=== PATIENT | male | born 1955 | race Caucasian/White ===

== ENCOUNTER 2016-06-06 07:05 | Emergency (ER) | payer BC, MEDICARE ==
[2016-06-06 11:51] LABS: HEMOGLOBIN 15.6 gm/dl (14.0-17.5); RED BLOOD COUNT 5.26 M/UL (4.20-5.50); WHITE BLOOD COUNT 17.1 K/UL (4.5-11.0)
[2016-06-06 12:06] LABS: BUN/CREATININE RATIO 23 (0-10)
== END 2016-06-06 13:50 | disposition home or self-care (01) ==
LOC: ER1 07:05
PROVIDERS: Physician Assistant Medical
DX: M79.1 Myalgia (principal); E11.65 Type 2 diabetes mellitus with hyperglycemia; D72.829 Elevated white blood cell count, unspecified; I10 Essential (primary) hypertension; F17.210 Nicotine dependence, cigarettes, uncomplicated; Z90.49 Acquired absence of other specified parts of digestive tract; Z88.2 Allergy status to sulfonamides; Z79.899 Other long term (current) drug therapy
CPT/HCPCS: 36415; 71020; 80053; 81001; 82009; 85025; 99283

== ENCOUNTER → 2016-08-07 | Outpatient (CLI) | payer BC, MEDICARE | LOC: CT 14:58 | DX: J32.8 Other chronic sinusitis (principal); J32.1 Chronic frontal sinusitis | CPT/HCPCS: 70486 ==

== ENCOUNTER → 2016-08-08 | Outpatient (CLI) | payer BC, MEDICARE | LOC: US 10:07 | DX: M20.40 Other hammer toe(s) (acquired), unspecified foot (principal); E11.9 Type 2 diabetes mellitus without complications; I10 Essential (primary) hypertension; M51.9 Unspecified thoracic, thoracolumbar and lumbosacral intervertebral disc disorder; E55.9 Vitamin D deficiency, unspecified; I77.89 Other specified disorders of arteries and arterioles | CPT/HCPCS: 93922; 93925 ==

== ENCOUNTER 2020-03-07 14:16 | Emergency (ER) | payer MEDICARE ==
[2020-03-07] MEDS ORDERED: VENTOLIN HFA 66.7 GM INH (17:04)
== END 2020-03-07 18:19 | disposition home or self-care (01) ==
LOC: ER1 14:16
DX: J06.9 Acute upper respiratory infection, unspecified (principal); I10 Essential (primary) hypertension; F17.200 Nicotine dependence, unspecified, uncomplicated; Z88.2 Allergy status to sulfonamides; Z20.822 Contact with and (suspected) exposure to COVID-19
CPT/HCPCS: 71046; 81001; 86403; 87081; 87086; 87880; 96372; 99283; J1100; U0002

== ENCOUNTER → 2020-05-05 | Outpatient (CLI) | payer MEDICARE, OTHER ==
[~2020-05-05] MED LIST: COZAAR 25MG TAB25 MG PO; GABAPENTIN300 MG PO; HYDROCODON-ACE1 EAC6 PO; LOPRESSOR 25 MG25 MG PO; OMEPRAZOLE40 MG PO; TIZANIDINE HCL4 MG PO; VENTOLIN HFA 66.7 GM INH; VITAMIN D3125 MCG PO
== END ==
LOC: CT 13:40
DX: K22.2 Esophageal obstruction (principal); G47.62 Sleep related leg cramps; I73.9 Peripheral vascular disease, unspecified; E11.40 Type 2 diabetes mellitus with diabetic neuropathy, unspecified; R13.10 Dysphagia, unspecified; R22.1 Localized swelling, mass and lump, neck; K11.8 Other diseases of salivary glands
CPT/HCPCS: 36415; 70492; 82565; Q9963

== ENCOUNTER 2020-07-27 20:54 | Observation (INO) | payer MEDICARE, OTHER ==
[~2020-07-27] VITALS: Ht 182.9 cm; Wt 83.9 kg
[~2020-07-27 20:54] MED LIST changes: -COZAAR 25MG TAB25 MG PO; -GABAPENTIN300 MG PO; -HYDROCODON-ACE1 EAC6 PO; -LOPRESSOR 25 MG25 MG PO; -OMEPRAZOLE40 MG PO; -TIZANIDINE HCL4 MG PO; -VITAMIN D3125 MCG PO
[2020-07-27 22:17] LABS: HEMOGLOBIN 17.4 gm/dl (14.0-17.5); RED BLOOD COUNT 5.9 M/UL (4.20-5.50); WHITE BLOOD COUNT 10.3 K/UL (4.5-11.0)
[2020-07-27 22:30] LABS: BUN/CREATININE RATIO 13 (0-10)
[2020-07-28] MEDS ORDERED: GABAPENTIN300 MG PO (09:42)
[2020-07-28] MEDS ORDERED: HYDROCODON-ACE1 EAC6 PO (09:43)
[2020-07-28] MEDS ORDERED: TIZANIDINE HCL4 MG PO (09:44)
[2020-07-28] MEDS ORDERED: COZAAR 25MG TAB25 MG PO (09:44)
[2020-07-28] MEDS ORDERED: OMEPRAZOLE40 MG PO (09:45)
[2020-07-28] MEDS ORDERED: LOPRESSOR 25 MG25 MG PO (09:45)
[2020-07-28] MEDS ORDERED: VITAMIN D3125 MCG PO (09:47)
[2020-07-29 06:41] LABS: HEMOGLOBIN 14.5 gm/dl (14.0-17.5); RED BLOOD COUNT 5.03 M/UL (4.20-5.50); WHITE BLOOD COUNT 5.7 K/UL (4.5-11.0)
[2020-07-29 07:30] LABS: BUN/CREATININE RATIO 14 (0-10)
--- NOTE | 2020-07-29 11:23 | NUR ---
INSTRUCTED ON DIET TOLERATED TO ASSIST WITH BOWEL OBSTRUCTION. STOP B/P MEDS ORDERED PER MD. KEEP FOLLOW UP APPOINTMENTS, VERBALIZED UNDERSTANDING. RUPINDER LOZA R.N.
== END 2020-07-29 12:30 | disposition home or self-care (01) ==
LOC: ER1 20:54 → CDU 07-28 02:06 → MED SURG 4 07-28 16:00
PROVIDERS: Internal Medicine; Physician Assistant; ADMIT Internal Medicine Infectious Disease
DX: K52.9 Noninfective gastroenteritis and colitis, unspecified (principal); K21.9 Gastro-esophageal reflux disease without esophagitis; G89.4 Chronic pain syndrome; F11.20 Opioid dependence, uncomplicated; I10 Essential (primary) hypertension; K44.9 Diaphragmatic hernia without obstruction or gangrene; E11.9 Type 2 diabetes mellitus without complications; F17.210 Nicotine dependence, cigarettes, uncomplicated; Z88.2 Allergy status to sulfonamides; Z20.822 Contact with and (suspected) exposure to COVID-19; Z79.899 Other long term (current) drug therapy
CPT/HCPCS: 36415; 80048; 80053; 81001; 82550; 82553; 82962; 83605; 83690; 83874; 84484; 85025; 96372; 96374; 96375; 96376; 99285; C9113; G0378; J1650; J2270; J2405; J7030; Q9967; U0002

== ENCOUNTER → 2020-09-01 | Outpatient (CLI) | payer SELFPAY ==
[~2020-09-01] MED LIST changes: +COZAAR 25MG TAB25 MG PO; +GABAPENTIN300 MG PO; +HYDROCODON-ACE1 EAC6 PO; +LOPRESSOR 25 MG25 MG PO; +OMEPRAZOLE40 MG PO; +TIZANIDINE HCL4 MG PO; +VITAMIN D3125 MCG PO
== END ==
LOC: RAD 09:06
DX: R10.13 Epigastric pain (principal)
CPT/HCPCS: 74250

== ENCOUNTER → 2020-09-06 | Outpatient (CLI) | payer MEDICARE | LOC: US 09:29 | DX: D37.030 Neoplasm of uncertain behavior of the parotid salivary glands (principal) ==

== ENCOUNTER → 2021-02-10 | Outpatient (CLI) | payer MEDICARE | LOC: KOH-I 13:26 | DX: D37.030 Neoplasm of uncertain behavior of the parotid salivary glands (principal) | CPT/HCPCS: 76536 ==

== ENCOUNTER → 2021-05-26 | Outpatient (CLI) | payer MEDICARE | LOC: KOH-I 11:00 | DX: F17.210 Nicotine dependence, cigarettes, uncomplicated (principal); R91.8 Other nonspecific abnormal finding of lung field | CPT/HCPCS: 71271 ==

== ENCOUNTER → 2021-06-20 | Outpatient (CLI) | payer MEDICARE | LOC: KOH-I 13:12 | DX: D37.030 Neoplasm of uncertain behavior of the parotid salivary glands (principal) | CPT/HCPCS: 76536 ==

== ENCOUNTER → 2021-09-28 | Outpatient (CLI) | payer MEDICARE | LOC: RAD 14:53 | DX: R05.9 Cough, unspecified (principal); Z03.818 Encounter for observation for suspected exposure to other biological agents ruled out; Z72.0 Tobacco use; R91.8 Other nonspecific abnormal finding of lung field | CPT/HCPCS: 71046 ==

== ENCOUNTER 2021-10-11 16:22 | Emergency (ER) | payer MEDICARE ==
[2021-10-11 17:15] LABS: HEMOGLOBIN 15.7 gm/dl (14.0-17.5); RED BLOOD COUNT 5.33 M/UL (4.20-5.50); WHITE BLOOD COUNT 8.2 K/UL (4.5-11.0)
[2021-10-11 17:51] LABS: BUN/CREATININE RATIO 13 (0-10)
[2021-10-11] MEDS ORDERED: MUCINEX600 MG PO (18:57)
[2021-10-11] MEDS ORDERED: DOXYCYCLINE HY100 MG PO (18:57)
== END 2021-10-11 20:00 | disposition home or self-care (01) ==
LOC: ER1 16:22
PROVIDERS: Family Medicine
DX: R05.9 Cough, unspecified (principal); F17.210 Nicotine dependence, cigarettes, uncomplicated; Z88.2 Allergy status to sulfonamides; Z20.822 Contact with and (suspected) exposure to COVID-19
CPT/HCPCS: 0240U; 71046; 80053; 82550; 82553; 83880; 84484; 85025; 94664; 99284

== ENCOUNTER → 2021-11-18 | Outpatient (CLI) | payer MEDICARE ==
[~2021-11-18] MED LIST changes: +DOXYCYCLINE HY100 MG PO; +MUCINEX600 MG PO
== END ==
LOC: RAD 15:13
DX: M54.16 Radiculopathy, lumbar region (principal); S39.012A Strain of muscle, fascia and tendon of lower back, initial encounter; E11.40 Type 2 diabetes mellitus with diabetic neuropathy, unspecified; E11.51 Type 2 diabetes mellitus with diabetic peripheral angiopathy without gangrene; I10 Essential (primary) hypertension; K22.2 Esophageal obstruction; R22.1 Localized swelling, mass and lump, neck; J30.9 Allergic rhinitis, unspecified; J43.9 Emphysema, unspecified
CPT/HCPCS: 71046